=== PATIENT | female | born 1990 | race Caucasian/White ===

== ENCOUNTER 2019-11-08 00:18 | Inpatient (IN) ==
[~2019-11-08 00:18] MED LIST: *HR* FentaNYL (PF) 100 MCG/2 ML VIAL IVP PRN; Famotidine 20 MG/2 ML VIAL IVP PRN; Metoclopramide 10 MG/2 ML VIAL IVP PRN; Naloxone 0.4 MG/ML INJ IVP PRN; Ondansetron 4 MG/2 ML VIAL IVP PRN
[2019-11-08] MEDS ORDERED: Ringers Solution, Lactated 1,000 ML IVC SCH (00:45)
[2019-11-08 00:48] LABS: Basophils % 0.3 %; Eosinophils # 0.2 K/mcL (0.0-0.6); Eosinophils % 0.9 %; Hematocrit 37.2 % (35.3-44.9); Hemoglobin 12.1 g/dL (11.5-15.4); Immature Granulocytes % 0.7 % (0-4); Lymphocytes # 2.5 K/mcL (0.6-4.6); Lymphocytes % 15.6 %; Mean Corpuscular HGB Conc 32.5 g/dL (31.6-35.5); Mean Corpuscular Hemoglobin 29.2 pg (28.0-33.3); Mean Corpuscular Volume 89.9 fL (83.0-100.0); Mean Platelet Volume 9.9 fL (9.4-12.4); Monocytes % 6.3 %; Neutrophils # 12.1 K/mcL (1.6-8.9); Platelet Count 310 K/mcL (140-400); Red Blood Count 4.14 M/mcL (3.82-4.97); Red Cell Distribution Width 13.7 % (11.5-14.5); Segmented Neutrophils % 76.2 %; White Blood Count 15.9 K/mcL (4.3-11.1)
[2019-11-08 00:55] LABS: Amphetamine Screen,Urine Negative ng/mL (Cutoff=1000); Barbiturate Screen,Urine Negative ng/mL (Cutoff=200); Benzodiazepines Screen,Urine Negative ng/mL (Cutoff=200); Cannabinoid Screen,Urine Negative ng/mL (Cutoff = 50); Cocaine Screen,Urine Negative ng/mL (Cutoff= 300); Opiate Screen,Urine Negative ng/mL (Cutoff=300); Phencyclidine Screen,Urine Negative ng/mL (Cutoff=25)
[2019-11-08] MEDS ORDERED: Oxytocin 20 units/ LR 1000 mL 20 UNIT/1,000 ML BAG IVC ONE (01:24)
[2019-11-08] MEDS ORDERED: Rho Immune Globulin 1,500 UNIT SYRINGE IM PRN (04:21)
[2019-11-08] MEDS ORDERED: Benzocaine/Menthol 56 GM AEROSOL SPRAY TP PRN (04:21)
[2019-11-08] MEDS ORDERED: Lanolin 7 G OINT...G. TP PRN (04:21)
[2019-11-08] MEDS: Oxytocin 20 units/ LR 1000 mL 20 UNIT/1,000 ML BAG IVC SCH ×2 (04:29→13:12)
[2019-11-08] MEDS: Ibuprofen 600 MG TABLET PO SCH ×2 (05:51→17:02)
[2019-11-08] MEDS ORDERED: Acetaminophen 325 MG TABLET PO PRN (06:00)
[2019-11-08] MEDS: Prenatal Vit/FA 1 EACH TABLET PO SCH (07:52)
[2019-11-09 04:32] LABS: Basophils % 0.2 %; Eosinophils # 0.3 K/mcL (0.0-0.6); Eosinophils % 2.2 %; Hematocrit 31.9 % (35.3-44.9); Immature Granulocytes % 0.5 % (0-4); Lymphocytes # 3.3 K/mcL (0.6-4.6); Lymphocytes % 22.3 %; Mean Corpuscular Hemoglobin 28.9 pg (28.0-33.3); Mean Corpuscular Volume 90.4 fL (83.0-100.0); Mean Platelet Volume 9.9 fL (9.4-12.4); Monocytes % 6.7 %; Neutrophils # 9.9 K/mcL (1.6-8.9); Platelet Count 252 K/mcL (140-400); Red Blood Count 3.53 M/mcL (3.82-4.97); Segmented Neutrophils % 68.1 %; White Blood Count 14.6 K/mcL (4.3-11.1)
[2019-11-09 04:33] LABS: Hemoglobin 10.2 g/dL (11.5-15.4)
[2019-11-09] MEDS: Ibuprofen 600 MG TABLET PO SCH (06:48)
[2019-11-09 07:59] VITALS: BP 99/67
[2019-11-09] MEDS: Prenatal Vit/FA 1 EACH TABLET PO SCH (08:37)
== END 2019-11-09 12:00 | disposition home or self-care (01) | DRG 560 ==
LOC: 1NENULAB → 1NENUOBS 05:34
PROVIDERS: ADMIT Registered Nurse; ATTEND Registered Nurse